=== PATIENT | female | born 1990 ===

== ENCOUNTER 2019-02-03 23:56 | Observation (INO) ==
[2019-02-04] MEDS ORDERED: traZODone 50 MG TABLET PO PRN (00:15)
[2019-02-04] MEDS ORDERED: *HR* LORazepam 1 MG TABLET PO PRN (00:15)
[2019-02-04] MEDS ORDERED: Ibuprofen 400 MG TABLET PO PRN (00:15)
[2019-02-04] MEDS ORDERED: Haloperidol Lactate 5 MG/ML VIAL IM PRN (00:15)
[2019-02-04] MEDS ORDERED: hydrOXYzine pamoate 25 MG CAPSULE PO PRN (00:15)
[2019-02-04] MEDS ORDERED: Mag Hydrox/Al Hydrox/Simeth 30 ML UDC PO PRN (00:15)
[2019-02-04] MEDS ORDERED: MOM Conc 10 ML UD.LIQ PO PRN (00:15)
[2019-02-04] MEDS ORDERED: *HR* LORazepam 2 MG/ML VIAL IM PRN (00:15)
[2019-02-04 02:33] VITALS: BP 120/78
[2019-02-04] MEDS ORDERED: Nicotine 14 MG PATCH.TD24 TD SCH (09:00)
--- NOTE | 2019-02-04 09:25 | Psychiatry History & Physical ---
Date of Encounter: 02/04/19 Time of Encounter: 08:45 History of Present Illness Patient Stated Chief Complaint: "tired" Medicare Admission Attestation: For traditional Medicare patients the provided hospital inpatient services are reasonable and necessary and in the case of services not specified as inpatient-only under 42 CFR 419.22 (n), that they are appropriately provided as inpatient services in accordance 42 CFR 412.3. For Critical [facility] the patient may reasonably be expected to be discharged or transferred to a hospital within 96 hours after admission to the Critical Access Hospital. Admitted From: Direct Admit History of Present Illness: Ms. Fowler is a 28 year old female with a reported history of schizophrenia who was a direct admit from [facility] ED. Patient was not very talkative with this provider, and after 5 minutes asked if she could leave the interview to eat breakfast. Patient is not aware as to why she is on this unit. She did admit to a previous psychiatric hospitalization at [facility] starting 11/13/18 for 7 days. She states that she was admitted at that time because she was "butt naked on my mom's porch." Patient is unsure which psychiatric medications that she is on because "I don't know that kind of stuff," but does not think she needs them because "[facility] messed up." She states that her past psychiatric diagnoses include perfectionism, OCD, and ADHD. She denies suicidal and homicidal ideation at this time. She rates her current level of depression as 4/10 on a 0-10 scale with 0 being none and 10 being the worst. She rates her anxiety as 4/10 and pain as 0/10 on that same scale. She reports that she has "no family pretty much," but later reported that she is somewhat close to her mother. Denies auditory and visual hallucinations. Most information contained in this note is from review of records sent with patient from [facility]. Per review of direct admit papers: [facility] 01[facility]18[facility]-01/24/19. She left AMA on 01/24/19. While there, she was showing manic symptoms, including excessive cleaning, rapid speech, flight of ideas, delusions (political and confucianism), and paranoia. Her speech was "nonsensical." She began a medication regimen which appeared to improve symptoms. She returned to the Crisis Center on 02/01/19 and was considered to be more severe. She was again delusional (political and confucianism), cleaning excessively, throwing away clothing, and showering several times a day. At this time, Crisis Center recommended a higher level of care. She was transferred to [facility] ED for bizarre behavior. While in the ED, labs were drawn, which showed elevated ALT (290), AST (154), and platelets (556). Her urine drug screen was negative. She was exhibiting bizarre behavior in the ED, stating, "I'm Uyen Rachel Fowler, the Baby Miguel's mom is pissed and still here as Jerica Rachelkellen Fowler. I have knowledge and understand things. There is a law about me and Jose Larose. We are [employer]. 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 The notes also indicate that she has a past history of methamphetamine and heroin abuse with last use unknown. Past Med Surg Social Fam HX - Past Medical History Source: patient, old records reviewed, nursing notes reviewed Medical history: hepatitis (hepatitis C) - Past Psychiatric History Psychiatric history: Reports: schizophrenia Past psychiatric history details: Patient reports a history of perfectionism, OCD, and ADHD. Records from [facility] indicate that she has a diagnosis of schizophrenia, and reported that she was manic at the Crisis Center. She reports having an inpatient psychiatric stay at [facility] on 11/13/18 for 7 days because she was "butt naked on my mom's porch." Records indicate that she has also been inpatient for drug rehab in the past. Family psychiatric history: No Family History of Suicide: Unknown - Past Surgical History Surgical History: orthopedic, other (leg surgery), other (tonsillectomy) - Social History Smoking Status: Current every day smoker Smokeless Tobacco Status: No Alcohol use: rarely Drug use: opiates, methamphetamine Additional substance use detail: Records indicate that patient has a history of heroin and methamphetamine abuse, with a previous inpatient stay for drug rehab. Patient told this provider's attending that she does "every drug in the book." She states that she was using meth prior to going to the Crisis Center and was testing positive for meth at that time. Urine drug screen done 02/03/19 was negative. Occupational status: unemployed Current living situation: Homeless (Reports living with friends and living "on the streets.") Activity Level: Independent ambulation Additional social history: Unable to obtain most history from the patient. However, she did note that her childhood was "alright" and that she was raised by her "mom and them." She is not close to her family and has "no family pretty much." She later reported that she is kind of close to her mom. She is not employed and her highest level of education is high school. She is single. She has been living "on the streets" and staying with friends. Records indicate that she also stays with her mom at times. Medications & Allergies Allergy/AdvReac Type Severity Reaction Status Date / Time Amoxicillin Allergy Anaphylaxis Verified 02/04/19 00:14 Penicillins Allergy Anaphylaxis Verified 02/04/19 00:13 Review of Systems Musculoskeletal: Denies: back pain, joint pain Psychiatric: Reports: depression, anxiety. Denies: suicidal ideation, homicidal ideation, auditory hallucinations, visual hallucinations Exam - HEENT Head exam IM: Present: normal inspection (small scars on forehead) Eye exam IM: Present: EOMI, normal appearance - Neurological Neurological exam: Present: alert - Respiratory Respiratory exam IM: Absent: accessory muscle use, respiratory distress - Skin Skin exam IM: Present: dry - Constitutional Vitals: Temp Pulse Resp BP 97.9 F 103 16 120/78 02/04/19 02:32 02/04/19 02:32 02/04/19 02:32 02/04/19 02:32 General appearance: age & developmentally appropriate, unkempt, average Additional observations: Patient was sleeping in bed with provider entered her room. She woke up, sat on the edge of the bed, and braided her hair. Then, she started to make her bed. Shortly after, she asked if she could leave to go eat breakfast. Much of the mental status exam was not able to be obtained. - Musculoskeletal Gait: normal Station: relaxed Strength & Tone: normal for patient - Psychiatric Level of alertness: Alert Behavior: uncooperative ("it's first thing in the morning"), guarded Psychomotor activity: Normal Eye Contact: Minimal Contact Mood Description: Irritable (regarding being on the unit) Patient description of mood: "tired" Affect description: congruent with mood, constricted Speech Volume: Soft/Quiet Speech pattern: normal rate, normal rhythm, mumbled Language & Vocabulary: consistent with education Thought Process: Intact Thought Content: Yes Intact, No Suicidal ideation, No Homicidal ideation Perceptual Disturbances: No Reacting to internal stimuli, No Auditory hallucinations, No Visual hallucinations Attention Span Ability: Unable to Focus Memory Description: Grossly Intact Patient Reliability: Not Reliable Historian Fund of knowledge: Yes average Intelligence Estimate: Average Judgment: Poor Insight: Minimal Results - Drug Levels and Toxicology Drug Levels and Toxicology: At [facility], urine drug screen negative on 02/03/19. - Labs Labs: [facility]: ALT: 290 AST: 154 Platelets: 556 All other labs were unremarkable. - Impressions EKG done at [facility] on 02/03/19 showed "sinus rhythm with borderline Q waves in inferior leads." QTc 438. Assessment and Plan (1) Substance-induced psychotic disorder Current visit: Yes Status: Resolved Plan: Admit inpatient for safety and stabilization, Close observation, Suicide Precautions per unit protocol, Encourage participation in unit milieu, Group Therapy, Monitor sleep, Monitor appetite Additional Plan: 1. It appears that the symptoms reported by the Crisis Center and [facility] ED have resolved. Due to her recent meth use, most likely substance-induced. 2. Psychosis has resolved. 3. Patient will be discharged today to her mother's house. 4. She should continue to take all psychiatric medications that she was taking prior to her admission. Risks, benefits, side effects, alternatives discussed w/pt: Yes Patient agreeable to treatment: Yes Plans for Post Hospital Care: Home Estimated Length of Stay (Days): 1 - Attending Attestation I examined this patient and my medical decision-making was reviewed with the Resident Physician. I agree with the documented findings, disposition and treatment plan as described.
--- NOTE | 2019-02-04 12:26 | Discharge Summary ---
Date of Encounter: 02/04/19 Time of Encounter: 12:00 Diagnosis - Discharge Diagnosis (1) Substance-induced psychotic disorder Priority: Primary Status: Resolved Medications - Discharge Medications Buspirone HCl [Buspar] 7.5 mg PO BID 02/04/19 [History] Citalopram [CeleXA] 10 mg PO DAILY 02/04/19 [History] Divalproex (24 HR) [Depakote ER (24 HR)] 250 mg PO 02/04/19 [History] hydrOXYzine HCl [Hydroxyzine HCl] 25 mg PO BID 02/04/19 [History] Allergy/AdvReac Type Severity Reaction Status Date / Time Amoxicillin Allergy Anaphylaxis Verified 02/04/19 00:14 Penicillins Allergy Anaphylaxis Verified 02/04/19 00:13 Results Procedures and tests throughout hospitalization: Patient had labs drawn at [facility] emergency department. Her urine drug screen was negative. Her ALT was 290, AST 154, platelets 556. All other labs were unremarkable. Provider Date of admission: 02/03/19 23:56 Discharging clinician: Gale Armendariz Psychiatry Exam - Constitutional Vitals: Temp Pulse Resp BP 97.9 F 103 16 120/78 02/04/19 02:32 02/04/19 02:32 02/04/19 02:32 02/04/19 02:32 General appearance: age & developmentally appropriate, average - Musculoskeletal Gait: normal Station: relaxed Strength & Tone: normal for patient - Psychiatric Patient Orientation: Yes Person, Yes Time, Yes Place, Yes Circumstance Level of alertness: Alert Behavior: restless, uncooperative, guarded Psychomotor activity: Normal Eye Contact: Minimal Contact Mood Description: Irritable (Patient does not want to be on this unit) Patient description of mood: "Tired" Affect description: congruent with mood, constricted Speech Volume: Soft/Quiet Speech pattern: normal rate, normal rhythm, mumbled Language & Vocabulary: consistent with education Thought Process: Intact Thought Content: Yes Intact, No Suicidal ideation, No Homicidal ideation Perceptual Disturbances: No Reacting to internal stimuli, No Auditory hallucinations, No Visual hallucinations Attention Span Ability: Unable to Focus Memory Description: Grossly Intact Patient Reliability: Not Reliable Historian Fund of knowledge: Yes average Intelligence Estimate: Average Judgment: Poor Insight: Minimal Hospital Course Hospital course: Ms. Fowler is a 28 year old female who was admitted to the inpatient psychiatric unit after displaying psychotic behaviors at the Crisis Center and [facility] emergency department. Patient does not appear to be psychotic at this time and no new medications were started. Patient denies auditory and visual hallucinations, suicidal ideation, homicidal ideation. Patient is very confused as to why she is on this unit. She does have a history of substance abuse with multiple drugs. However, her urine drug screen was negative. She has not been seen attending groups today and has been mostly withdrawn in her room. She continues to be irritable that she is on this unit. Patient will be discharged to her mother's house. She was instructed to follow-up with mental health and continue her current outpatient medications. Patient was educated of her diagnosis and the risks, benefits, and side effects of this treatment and alternative treatment options and was monitored for responsiveness and side effects. Mood, anxiety, sleep, appetite, and interest improved, as did future orientation. Thinking cleared, psychosis resolved, and mood stabilized. Patient was able to attend both individual and group therapy sessions as well as meeting with the psychiatrist daily and urged to discuss any medication or treatment issues or other concerns. The patient was educated primarily by verbal means about their diagnosis and manifestations in their life. The option for treatment including group and individual therapy programming was offered to the patient in the use of medications with all their potential risks, benefits, and side effects were discussed with the patient at length. The patient was given the opportunity to ask questions and was noted to participate in the treatment in the planning process. The patient felt ready a nd eager to be discharged from the inpatient psychiatric unit to continue on with treatment as an outpatient. The patient agreed that is they were safe for this disposition. The patient was considered to be able to participate in informed consent and decision making with respect to medical, legal, and financial issues of the time of discharge. At the time of discharge the patient adamantly denied any concerns for lethality including suicidal or homicidal thoughts ideations or plans and was future oriented toward ongoing mental health care, medical follow-up and sobriety. Time spent discussing smoking cessation with patient: 3 to 10 minutes Does patient wish to continue nicotine replacement upon disc: No - Time Spent with Patient Total time spent providing and/or coordinating discharge services: Greater than 30 minutes Specific discharge activities: Interval history reviewed. Available labs reviewed. Psychotherapy provided. Patient had an opportunity to ask questions and address concerns. Patient was in agreement with the treatment plan. The risks benefits and side effects of medications were discussed with the patient, including alternatives and treatment. The patient was educated on the abstaining from any alcohol or illicit substances, following up with all scheduled appo intments, and taking all medications as prescribed. Assessment and Plan - Patient/Caregiver Discharge Instructions Activity: resume usual activities as tolerated Diet: regular diet Additional Instructions: Continue current outpatient medications. Follow up with outpatient mental health. Encourage continued therapy in a group or individual setting. The patient was discharged to her mother's home. - Follow up Plan Follow up with: [facility] [Outside] - 03/01/19 9:30 am (You have an appointment scheduled with Teri Riggs on Friday, March 01, 2019 at 9:30 AM for Counseling. IMPORTANT - PLEASE READ: [facility] WILL CALL YOU THE DAY BEFORE THIS APPOINTMENT TO CONFIRM. YOU MUST CONFIRM THIS APPOINTMENT WITH THEM OR IT WILL BE REMOVED FORM THE SCHEDULE. YOU MAY ALSO CALL THEM 1-2 DAYS PRIOR TO THE APPOINTMENT TO CONFIRM THAT YOU WILL BE THERE ) Functional capacity at discharge: independent ambulation Overall status at discharge: Stable Disposition: Home, Self-Care Quality - Multiple Antipsychotics Patient discharged on 2 or more antipsychotic medications: No - Attending Attestation I examined this patient and my medical decision-making was reviewed with the Resident Physician. I agree with the documented findings, disposition and treatment plan as described except to the extent set forth below. Records that accompanied client from [facility] described her as manic and psychotic. She had disorganized speech and behaviors including showering multiple times a day, throwing away clothing multiple times a day, and anglican and political preoccupations/delusions. On eval today client is irritable but demonstrating no signs of toño or psychosis. She has mostly been sleeping since transferring to . Client denies knowing why she is in the hospital. Denies SI/HI/AH/VH. Thoughts are organized. Behaviors are appropriate. Admits she was using "every drug there is" prior to presenting to the Crisis Center. Tox screen negative prior to [facility] but client reports her tox screen was positive for meth at time of presentation to the Crisis Center. Client states she is already linked with [facility] for outpatient care. Denies knowing what her diagnosis is but current presentation consistent with Substance Induced Psychosis that is now resolved. Client likes the street life but stays with her mother on occasion. Mother contacted and she is comfortable picking client up and having her live with her. Client was never suicidal or homicidal and has not presented with any dangerous behaviors here. Not meeting inpatient criteria and client would like discharged since she has a safe place to go and follow-up in place. Total time spent with client greater than 30 minutes. Procedures - Procedures Procedures: Medication Management, Crisis Stabilization, Supportive Therapy, Group Therapy, Psychoeducational Therapy
== END 2019-02-04 15:00 | disposition home or self-care (01) ==
LOC: INTOOBSV 23:56 → 1ANU 23:56
PROVIDERS: ADMIT Psychiatry & Neurology Psychiatry; ATTEND Psychiatry & Neurology Psychiatry